=== PATIENT | female | born 2000 | race Caucasian/White ===

== ENCOUNTER 2023-09-22 15:58 | Outpatient (CLI) | payer BC, SELFPAY | END 2023-09-22 15:59 | disposition home or self-care (01) | LOC: NFLDREF 09-23 05:33 | PROVIDERS: Visit Provider Family Medicine | DX: N39.0 Urinary tract infection, site not specified (principal) | CPT/HCPCS: 87086; 87186 ==

== ENCOUNTER 2024-04-18 17:16 | Outpatient (CLI) | payer BC, SELFPAY ==
--- NOTE | 2024-04-18 17:30 | US_ITS ---
Patient: MEGHA MARTIN Facility:?[facility] Patient ID:?[id number] Site Patient ID:?[id number]. Site :?[id number] Study:?US-OB Pelvis 1st tri transvaginal-04/18/2024 5:50:57 PM Ordering Physician:?Leandro Ibarra Final Report: INDICATION: Check viability and dates TECHNIQUE: Transabdominal and transvaginal scanning was performed. Transvaginal scanning was performed to better evaluate the IUP and adnexa. Ovarian blood flow was evaluated with color-flow and pulsed Doppler. COMPARISON: None FINDINGS: There is a living IUP with gestational age of 8 weeks 4 days by LMP and 8 weeks 3 days by today`s crown-rump length. EDC based on today`s crown-rump length is 11/25/2024. The embryonic heart rate is measured at 178 beats per minute. The placenta is not yet formed. No subchorionic hemorrhage is evident. A simple 2.6 cm right ovarian cyst is demonstrated. The right ovary measures 3.8 x 3.0 x 2.8 cm and the left 3.0 x 1.8 x 1.7 cm. Ovarian blood flow is demonstrated with color-flow and pulsed Doppler. No adnexal mass or free fluid is apparent. IMPRESSION: 1. Living IUP with gestational age of 8 weeks 3 days by today`s crown-rump length and EDC of 11/25/2024. 2. No complication evident. 3. Simple 2.6 cm right ovarian cyst, possibly a corpus luteum cyst. Dictated by Anson uS MD @ 04/19/2024 12:18:23 PM Signed by:?Anson Su MD @04/19/2024 12:18:23 PM (Electronic Signature)
== END 2024-04-18 17:17 | disposition home or self-care (01) ==
LOC: US 17:18
PROVIDERS: Visit Provider Registered Nurse
DX: Z34.91 Encounter for supervision of normal pregnancy, unspecified, first trimester (principal); O34.91 Maternal care for abnormality of pelvic organ, unspecified, first trimester; N83.201 Unspecified ovarian cyst, right side; Z3A.08 8 weeks gestation of pregnancy
CPT/HCPCS: 76817

== ENCOUNTER 2024-04-18 18:34 | Outpatient (CLI) | payer BC, SELFPAY ==
[2024-04-18 23:19] LABS: Chlamydia DNA Amplified* NOT DETECTED (No Detected); GC DNA Amplified* NOT DETECTED (No Detected)
== END 2024-04-18 18:35 | disposition home or self-care (01) ==
PROVIDERS: Visit Provider Registered Nurse
DX: Z34.91 Encounter for supervision of normal pregnancy, unspecified, first trimester (principal); Z3A.08 8 weeks gestation of pregnancy
CPT/HCPCS: 83021; 86592; 86703; 86704; 86706; 86762; 86787; 86803; 86850; 86900; 86901; 87086; 87340; 87491; 87591

== ENCOUNTER 2024-04-24 13:58 | Outpatient (CLI) | payer BC, SELFPAY ==
--- NOTE | 2024-04-24 14:00 | CRLHL7_ITS ---
For Patients: As a result of the Century Cures Act, medical imaging exams and procedure reports are released immediately into your electronic medical record. You may view this report before your referring provider. If you have questions, please contact your health care provider. OB ULTRASOUND INDICATION: Bleeding in early . LMP: . JER by LMP: 11/24/2024. GA: 9 w, 3 d. Previous US: Yes. JER by US: 11/25/2024. GA: 8 w, 3 d. CRL: 2.3 cm. 9 w 0 d. JER: 11/27/2024. FHR: 180 BPM. Gestational sac: 2.9 cm. Appears within normal limits. Yolk sac: 4.0 mm. Appears within normal limits. Right ovary: Within normal limits. 3.8 x 2.9 x 2.9 cm. Left ovary: N/V. IMPRESSION: 1. Single viable intrauterine . 2. Measurements are consistent with dates. 3. Tiny subchorionic hemorrhage measuring 1.3 x 0.4 x 0.4 cm, new from the prior study. Cristo Rosenberg M.D. Body/Diagnostic Radiologist [email or web address] SARA/susan davis/Dictated by: Cristo Rosenberg MD @ 04/25/2024 10:55:00 AM (Electronically Signed)
== END 2024-04-24 13:59 | disposition home or self-care (01) ==
LOC: US 13:59
PROVIDERS: Visit Provider Obstetrics & Gynecology
DX: O20.9 Hemorrhage in early pregnancy, unspecified (principal); Z3A.09 9 weeks gestation of pregnancy
CPT/HCPCS: 76817

== ENCOUNTER 2024-06-13 17:20 | Outpatient (CLI) | payer BC, SELFPAY | END 2024-06-13 17:21 | disposition home or self-care (01) | PROVIDERS: Visit Provider Registered Nurse | DX: R03.0 Elevated blood-pressure reading, without diagnosis of hypertension (principal) | CPT/HCPCS: 82565; 82570; 84156; 84450; 84460; 84520 ==

== ENCOUNTER 2024-06-19 11:11 | Outpatient (CLI) | payer BC, SELFPAY | END 2024-06-19 11:12 | disposition home or self-care (01) | LOC: NFLDREF 06-21 01:36 | PROVIDERS: Visit Provider Registered Nurse | DX: R03.0 Elevated blood-pressure reading, without diagnosis of hypertension (principal) | CPT/HCPCS: 82570; 84156 ==

== ENCOUNTER 2024-08-30 07:10 | Outpatient (CLI) | payer BC, SELFPAY ==
--- NOTE | 2024-08-30 07:15 | CRLHL7_ITS ---
For Patients: As a result of the Century Cures Act, medical imaging exams and procedure reports are released immediately into your electronic medical record. You may view this report before your referring provider. If you have questions, please contact your health care provider. US OB PELVIS, F/U GROWTH LMP: 02/18/2024. JER by LMP: 11/24/2024. GA: 27w, 5d. Single. COMPARISON: 08/01/2024 MFM, 07/10/2024 MFM, 04/24/2024. INDICATION: Growth - CHTN. CERVIX: Not visualized. POSITIONING: Breech. AMNIOTIC FLUID: 7.1 cm. PLACENTA: Technique: Transabdominal. PLACENTA POSITION: Anterior. DOPPLER: heart rate: 146 bpm. BIOMETRY: BPD: 6.8 cm. 27w, 2d, 22.7 percent. HC: 25.9 cm. 28w, 1d, 33.3 percent. AC: 23.9 cm. 28w, 1d, 55.8 percent. FL: 5.0 cm. 26w, 6d, 13.4 percent. FL/AC ratio: 20.9 percent. HC/AC ratio: 1.1. EFW: 1104 g. Weight: 2 lbs, 7 oz. age by this US: 27w, 4d. JER by this US: 11/25/2024. Percentile by JER: 34.1 percent. IMPRESSION: 1. Sonographic gestational age 27 weeks 4 days and sonographic due date 11/25/2024. Good correlation with dates. Normal interval growth. 2. Estimated weight 34th percentile. Abdominal circumference 56th percentile. Jonathan Gould M.D. Diagnostic Radiologist [email or web address] SP/Dictated by: Jonathan Gould MD @ 08/30/2024 12:59:00 PM (Electronically Signed)
== END 2024-08-30 07:11 | disposition home or self-care (01) ==
LOC: US 07:11
PROVIDERS: Visit Provider Obstetrics & Gynecology
DX: Z34.92 Encounter for supervision of normal pregnancy, unspecified, second trimester (principal); Z3A.27 27 weeks gestation of pregnancy
CPT/HCPCS: 76816; 86850

== ENCOUNTER 2024-08-30 08:30 | Outpatient (CLI) | payer BC, SELFPAY | END 2024-08-30 08:31 | disposition home or self-care (01) | LOC: NFLDREF 08:31 | PROVIDERS: Visit Provider Obstetrics & Gynecology | DX: Z34.03 Encounter for supervision of normal first pregnancy, third trimester (principal); Z67.11 Type A blood, Rh negative | CPT/HCPCS: 86592; 86850; J2791 ==

== ENCOUNTER 2024-09-26 10:24 | Outpatient (CLI) | payer BC, SELFPAY ==
[2024-09-26 10:43] VITALS: PULSE 74; O2SAT 96
[2024-09-26 10:45] VITALS: RESP 18; TEMP 37
[2024-09-26 10:47] VITALS: BP 113/56; PULSE 70
[2024-09-26 10:48] VITALS: PULSE 73; O2SAT 97
[2024-09-26 10:53] VITALS: PULSE 73; O2SAT 96
[2024-09-26 11:03] VITALS: BP 109/53; PULSE 67
--- NOTE | 2024-09-26 11:57 | PC.OBNST ---
NST Note NST Note Start: 09/26/24 10:28 Freq: ONCE Status: Active Protocol: Document 09/26/24 11:53 FLAKITA (Rec: 09/26/24 11:57 FLAKITA Desktop) NST Note 1 Para (# of births) 0 EDC 11/24/24 Gestational Age In Weeks & Days 31 Weeks & 4 Days High Risk Factors High Blood Pressure - Preexisting Patient Presented with Complaint(s) of Headache Other Complaints Pt. had Headache, R eye blurred vision, and nausea this am. Her BP at work was 140/90. Appropriate for Gestational Age Yes BLADIMIR Thomas Date 09/26/24 Appropriate for Gestational Age Yes BLADIMIR Aragon Date 09/26/24 OB NST charge Yes Complete NST Note via Write Note Yes The provider's electronic signature indicates the NST is reactive/appropriate for gestational age. *Note to provider: If an addendum is required, open the patient's chart and click on the note under the Nurse/Allied Health tab.
== END 2024-09-26 11:25 | disposition home or self-care (01) ==
LOC: OB OUT 10:25 → OB 10:26
PROVIDERS: Visit Provider Obstetrics & Gynecology
DX: O10.913 Unspecified pre-existing hypertension complicating pregnancy, third trimester (principal); R51.9 Headache, unspecified; Z3A.31 31 weeks gestation of pregnancy
CPT/HCPCS: 59025; G0463

== ENCOUNTER 2024-09-27 07:15 | Outpatient (CLI) | payer BC, SELFPAY ==
--- NOTE | 2024-09-27 07:15 | CRLHL7_ITS ---
For Patients: As a result of the Century Cures Act, medical imaging exams and procedure reports are released immediately into your electronic medical record. You may view this report before your referring provider. If you have questions, please contact your health care provider. OB ULTRASOUND BIOPHYSICAL PROFILE/FOLLOW-UP LIMITED, 09/27/2024 CLINICAL HISTORY: CHTN. COMPARISON: 08/30/2024, 08/01/2024, 07/10/2024. TECHNIQUE: Real time veloz scale imaging of the fetus was performed transabdominally. FINDINGS: Gestation: Single. JER by LMP: 10/30/2024. GA: 31 weeks 5 days. Cervix: Not visualized. Positioning: Vertex. Amniotic Fluid: 6.5 cm SDP. BIOPHYSICAL PROFILE: Gross Body Movements: 2 Tone: 2 Respiratory Activity: 2 Amniotic Fluid: 2 Total Score: 8/8 Placenta: Technique: TA. Placenta Location: Anterior. Dopplers: Heart Rate: 159 bpm. BIOMETRY: BPD: 8.0 cm, 32 weeks 1 day. 56% HC: 29.8 cm, 33 weeks 0 days. 46% AC: 28.3 cm, 32 weeks 2 days. 67% FL: 5.7 cm, 30 weeks 0 days. 5% FL/AC Ratio: 20.23% HC/AC Ratio: 1.05. EFW: 1820 grams, 4 lb 0 oz. Age by this US: 31 weeks 6 days. JER by this US: 11/23/2024. Percentile by JER: 38% IMPRESSION: 1. Biophysical profile score 8/8. 2. Sonographic gestational age 31 weeks 6 days and sonographic due date 11/23/2024. Good correlation with dates. Normal interval growth. 3. Estimated weight 38th percentile. Abdominal circumference 67th percentile. Jonathan Gould M.D. Diagnostic Radiologist [email or web address] Transcribed: 11:03 am DW/Dictated by: Jonathan Gould MD @ 09/27/2024 8:45:00 AM (Electronically Signed)
== END 2024-09-27 07:16 | disposition home or self-care (01) ==
LOC: US 07:16
PROVIDERS: Visit Provider Obstetrics & Gynecology
DX: O10.913 Unspecified pre-existing hypertension complicating pregnancy, third trimester (principal); Z3A.31 31 weeks gestation of pregnancy
CPT/HCPCS: 76816; 76819

== ENCOUNTER 2024-10-04 09:17 | Outpatient (CLI) | payer BC, SELFPAY ==
--- NOTE | 2024-10-04 10:45 | CRLHL7_ITS ---
For Patients: As a result of the Cures Act, medical imaging exams and procedure reports are released immediately into your electronic medical record. You may view this report before your referring provider. If you have questions, please contact your health care provider. OB ULTRASOUND FOLLOW-UP BIOPHYSICAL PROFILE, 10/04/2024 CLINICAL HISTORY: HTN. COMPARISON: 09/27/2024, 08/30/2024, 08/01/2024. TECHNIQUE: Real time veloz scale imaging of the fetus was performed. Transabdominal imaging performed. FINDINGS: JER by LMP: 11/24/2024. GA: 32 weeks 5 days. GESTATION: Single. CERVIX: Not visualized. POSITIONING: Vertex. AMNIOTIC FLUID: 5.5 cm SDP. BIOPHYSICAL PROFILE: Gross Body Movements: 2 Tone: 2 Respiratory Activity: 2 Amniotic Fluid SDP: 2 Total Score: 8/8 PLACENTA: Technique: TA. Placenta Position: Anterior. DOPPLERS: Heart Rate: 154 bpm. IMPRESSION: Normal biophysical profile score of 8/8. Jonathan Gould M.D. Diagnostic Radiologist [email or web address] Transcribed: 11:04 am DW/Dictated by: Jonathan Gould MD @ 10/04/2024 10:17:00 AM (Electronically Signed)
== END 2024-10-04 09:18 | disposition home or self-care (01) ==
LOC: US 09:17
PROVIDERS: Visit Provider Obstetrics & Gynecology
DX: O10.913 Unspecified pre-existing hypertension complicating pregnancy, third trimester (principal); Z3A.32 32 weeks gestation of pregnancy
CPT/HCPCS: 76819; 82565; 82570; 84156; 84450; 84460

== ENCOUNTER 2024-10-11 07:07 | Outpatient (CLI) | payer BC, SELFPAY ==
--- NOTE | 2024-10-11 07:15 | CRLHL7_ITS ---
For Patients: As a result of the Century Cures Act, medical imaging exams and procedure reports are released immediately into your electronic medical record. You may view this report before your referring provider. If you have questions, please contact your health care provider. INDICATION: Hypertension COMPARISON: 10/04/2024 TECHNIQUE: Oliva-scale and color Doppler of the gravid uterus and fetus from a transabdominal approach. FINDINGS: Provided gestational age: 33 weeks 5 days There is a single intrauterine gestation in cephalic presentation. heart rate is 144 beats per minute. Placenta is anterior. tone: 2/2 movement: 2/2 breathin/2 Amniotic fluid volume: 2/2 The single deepest vertical pocket measures: 5.9 cm. IMPRESSION: Biophysical profile score is 6/8. No points for breathing. Dictated by Angi Lane MD @ 10/11/2024 8:02:38 AM (Electronically Signed)
== END 2024-10-11 07:08 | disposition home or self-care (01) ==
LOC: US 07:08
PROVIDERS: Visit Provider Obstetrics & Gynecology
DX: O13.3 Gestational [pregnancy-induced] hypertension without significant proteinuria, third trimester (principal); Z3A.33 33 weeks gestation of pregnancy
CPT/HCPCS: 76819; 82565; 82570; 84156; 84450; 84460

== ENCOUNTER 2024-10-12 07:17 | Outpatient (CLI) | payer BC, SELFPAY ==
--- NOTE | 2024-10-12 07:15 | CRLHL7_ITS ---
For Patients: As a result of the Cures Act, medical imaging exams and procedure reports are released immediately into your electronic medical record. You may view this report before your referring provider. If you have questions, please contact your health care provider. OB ULTRASOUND LMP: 02/18/2024. JER by LMP: 11/24/2024. GA: 33 w, 6 d. Single. Comparison: 10/11/2024, 10/04/2024, 09/27/2024. INDICATION: Failed BPP yesterday. TECHNIQUE: Real time grayscale imaging of the fetus was performed. Transabdominal. CERVIX: Not visualized. POSITIONING: Vertex. AMNIOTIC FLUID: 3.6 cm. SDP (N: greater than 2 x 1 cm) BIOPHYSICAL PROFILE: 2: Gross body movements 2: tone 2: Respiratory activity 2: Amniotic fluid SDP (N: greater than 2 x 1 cm) 8/8: Total score PLACENTA: Technique: Transabdominal. PLACENTA POSITION: Anterior. DOPPLER: heart rate: 141 bpm. IMPRESSION: 1. Biophysical profile score 8/8. 2. Left renal pelvis measures 4.9 mm. Normal is considered less than 7 mm. Jonathan Gould M.D. Diagnostic Radiologist [email or web address] GERTRUDIS/susan davis/Dictated by: Jonathan Gould MD @ 10/12/2024 10:14:00 AM (Electronically Signed)
== END 2024-10-12 07:18 | disposition home or self-care (01) ==
LOC: US 07:18
PROVIDERS: Visit Provider Obstetrics & Gynecology
DX: O10.913 Unspecified pre-existing hypertension complicating pregnancy, third trimester (principal); Z3A.33 33 weeks gestation of pregnancy
CPT/HCPCS: 76819

== ENCOUNTER 2024-10-18 08:13 | Outpatient (CLI) | payer BC, SELFPAY | END 2024-10-18 08:14 | disposition home or self-care (01) | LOC: NFLDREF 10-25 15:11 | PROVIDERS: Visit Provider Obstetrics & Gynecology | DX: I10 Essential (primary) hypertension (principal) | CPT/HCPCS: 82565; 82570; 84156; 84450; 84460 ==

== ENCOUNTER 2024-10-25 07:09 | Outpatient (CLI) | payer BC, SELFPAY ==
--- NOTE | 2024-10-25 07:15 | CRLHL7_ITS ---
For Patients: As a result of the Century Cures Act, medical imaging exams and procedure reports are released immediately into your electronic medical record. You may view this report before your referring provider. If you have questions, please contact your health care provider. OB ULTRASOUND LMP: 02/17/2025. JER by LMP: 11/24/2024. GA: 35 w, 5 d. Single. Comparison: 10/12/2024, 10/11/2024, 10/04/2024. INDICATION: Chronic HTN. TECHNIQUE: Real time grayscale imaging of the fetus was performed. Transabdominal. CERVIX: Not visualized. POSITIONING: Vertex. AMNIOTIC FLUID: 6.1 cm. SDP (N: greater than 2 x 1 cm) BIOPHYSICAL PROFILE: 2: Gross body movements 2: tone 2: Respiratory activity 2: Amniotic fluid SDP (N: greater than 2 x 1 cm) 8/8: Total score PLACENTA: Technique: Transabdominal. PLACENTA POSITION: Anterior. DOPPLER: heart rate: 157 bpm. BIOMETRY: BPD: 8.8 cm. 35 w, 5 d, 55 percent. HC: 32 cm. 36 w, 1 d, 28 percent. AC: 30.6 cm. 34 w, 4 d, 25 percent. FL: 6.7 cm. 34 w, 4 d, 18 percent. FL/AC ratio: 22.03 percent. HC/AC ratio: 1.05. EFW: 2522 g. Weight: 5 lbs, 9 oz. age by this US: 35 w, 2 d. JER by this US: 11/27/2024. Percentile by JER: 26 percent. IMPRESSION: 1. Normal biophysical profile score 8/8. 2. Sonographic gestational age 35 weeks 2 days and sonographic due date 11/27/2024. Good correlation with dates. Normal interval growth. 3. Estimated weight 26th percentile. Abdominal circumference 25th percentile. Jonathan Gould M.D. Diagnostic Radiologist [email or web address] GERTRUDIS/susan davis/Dictated by: Jonathan Gould MD @ 10/25/2024 9:24:00 AM (Electronically Signed)
== END 2024-10-25 07:10 | disposition home or self-care (01) ==
LOC: US 07:09
PROVIDERS: Visit Provider Obstetrics & Gynecology
DX: O10.913 Unspecified pre-existing hypertension complicating pregnancy, third trimester (principal); Z3A.35 35 weeks gestation of pregnancy; Z37.0 Single live birth
CPT/HCPCS: 76816; 76819; 82565; 82570; 84156; 84450; 84460; 87081; 87653

== ENCOUNTER 2024-11-01 08:09 | Outpatient (CLI) | payer BC, SELFPAY | END 2024-11-01 08:10 | disposition home or self-care (01) | LOC: NFLDREF 11-03 16:40 | PROVIDERS: Visit Provider Obstetrics & Gynecology | DX: I10 Essential (primary) hypertension (principal) | CPT/HCPCS: 82565; 82570; 84156; 84450; 84460 ==

== ENCOUNTER 2024-11-08 07:06 | Outpatient (CLI) | payer BC, SELFPAY ==
--- NOTE | 2024-11-08 07:15 | CRLHL7_ITS ---
For Patients: As a result of the Century Cures Act, medical imaging exams and procedure reports are released immediately into your electronic medical record. You may view this report before your referring provider. If you have questions, please contact your health care provider. INDICATION: Chronic hypertension TECHNIQUE: Ultrasound OB pelvis transabdominal. Real-time veloz-scale imaging of the fetus was performed with color Doppler and spectral Doppler analysis of the umbilical artery without stress testing. COMPARISON: 10/25/2024 FINDINGS: Sonographic imaging demonstrates a single living intrauterine gestation. Fetus demonstrates a regular cardiac rate of 141 beats per minute. Fetus has a cephalic orientation. The placenta lies anterior. Amniotic fluid volume appears normal with a MVP of 4.1 cm. breathing movements, motion, and tone were all observed. IMPRESSION: Single viable intrauterine with a biophysical profile 01/05. Dictated by Raghu Thorne MD @ 11/08/2024 9:06:41 AM (Electronically Signed)
== END 2024-11-08 07:07 | disposition home or self-care (01) ==
LOC: US 07:07
PROVIDERS: Visit Provider Obstetrics & Gynecology
DX: O10.919 Unspecified pre-existing hypertension complicating pregnancy, unspecified trimester (principal)
CPT/HCPCS: 76819; 82565; 82570; 84156; 84450; 84460

== ENCOUNTER 2024-11-15 08:15 | Outpatient (CLI) | payer BC, SELFPAY | END 2024-11-15 08:16 | disposition home or self-care (01) | LOC: NFLDREF 11-17 17:04 | PROVIDERS: Visit Provider Obstetrics & Gynecology | DX: O13.3 Gestational [pregnancy-induced] hypertension without significant proteinuria, third trimester (principal); Z3A.37 37 weeks gestation of pregnancy | CPT/HCPCS: 82565; 82570; 84156; 84450; 84460 ==

== ENCOUNTER 2024-11-16 00:44 | Inpatient (IN) | payer BC, SELFPAY ==
[2024-11-16] VITALS (54 sets, daily range): BP systolic 104–138; BP diastolic 57–85; PULSE 71–101; RESP 16–20; TEMP 36.7–37.4; O2SAT 89–100; BMI 36.0
[2024-11-16 00:58] LABS: Amnisure Rom* POSITIVE
[2024-11-16 02:16] LABS: Hematocrit 35.2 % (33.0-51.0); Mean Corpuscular HGB Conc 34 gm/dL (32-36); Mean Corpuscular Hemoglobin 31 pg (26-34); Mean Corpuscular Volume 90 fL (80-100); Platelet Count* 214 K/uL (140-440); Red Blood Count 3.92 m/uL (4.00-5.20)
[2024-11-16 02:19] LABS: Slide Review Reflex No
--- NOTE | 2024-11-16 02:27 | P.LDBA_ITS ---
Subjective History of Present Illness Time Seen by Provider: : Date Seen: 11/16/24 Narrative: Dom is a 24yo at 38w6d GA admitted for spontaneous rupture membranes. Her is complicated by chronic hypertension (well controlled, on no medications the last several weeks), elevated BMI, anemia. Her complete history and physical was documented by myself on 11/01. She notes onset of intermittent contractions this evening, followed by SROM of clear fluid at approximately 2245. On admission, AmniSure was found to be positive. Cervical exam in the clinic earlier today was 50/-1. Patient notes intermittent contractions. She denies any vaginal bleeding. Endorses active movement. Specific Issues/Plans G 1 P 0 Partner: Jean. Baby girl: Brittany # BMI 31.4. Hemoglobin A1c 5.5% Daily low-dose aspirin recommended starting at 12 weeks. #Chronic hypertension diagnosed at 16 weeks. Patient to check BPs at home daily and call with any readings 140/90 or higher. baseline labs: P/C: 0.04, Total protein 24 hour: 79.5, Total protein 6. normal BUN and creat. normal ALT, AST. Started labetalol 100 mg BID on 06/28/24. Given low BP noted on 10/18, recommended cessation Level 2 US ordered; see below Monthly US for growth beginning 28 weeks Weekly testing beginning 32 weeks with HELLP labs. Orders placed 10/04/24. NST/BPP form: Filled out on 07/14/24 Delivery recommended 38 0/7-39 6/7 weeks - as off meds for now, consider 37 if need to restart - Pt desires IOL at 39 weeks after counseling, IOL consent/scheduling form completed 11/08 # atopic dermatitis that affects hands, arms, and nipples. Currently managed with aloe vera and Eucerin cream. # varicella non-immune. Rec. PP vaccine. #Anemia at 28 weeks Hgb:10.8 mg/dL, start oral iron Vaccines: Flu: declined Covid: declined Tdap: 09/13/24 RSV: N/A GBS: 10/25/24 Rh negative. rhogam: 08/30/24 given [Plan for testing] H&P: [] Imaging: * Level 2 on 07/10/24: Landaverde at 20 weeks 3 days. Anterior placenta not previa, three-vessel umbilical cord, SDP: 4.4 cm. EFW: 61 percentile, AC: 73rd percentile. Cervical length 45.6 mm. No anomalies identified but some views were suboptimal. Follow-up is scheduled here in 3 weeks to reassess anatomy that was suboptimally seen today. Following this, recommend monthly growth ultrasounds starting at 28 weeks and weekly testing starting at 32 weeks due to chronic hypertension on medication. * Follow up level 2 08/01: Breech, MVP 5.6 cm, EFW 38%, AC 41%, normal completed anatomy scan. * 08/30/2024: Breech presentation, single deepest pocket of amniotic fluid 7.1 cm, BPD: 22.7 percentile, HC: 33 percentile, AC: 56 percentile, FL: At 13th percentile. EFW: A 34th percentile. Normal growth. * 09/27/24: Vertex, SDP 6.5, EFW 38%, AC 67% BPP 8/8 * 10/11/2024 BPP 8/8, left renal pelvis 4.9 mm (normal) 32 week mental health: 09/27/24 Last pap: 05/2020 NIL; complete ?GBS negative ? OB - Problem Based A/P Additional Plan (1) Spontaneous rupture of amniotic membranes: Status: Acute (2) Anemia affecting : Status: Acute (3) Chronic hypertension: Problem details: diagnosed at 16 weeks gestation (06-13-24) Status: Acute (4) BMI 31.0-31.9,adult: Status: Acute Plan Dom is a 24-year-old at 38w6d GA admitted for spontaneous rupture of membranes at approximately 2245 this evening. is otherwise complicated by chronic hypertension well controlled without medication, anemia, elevated BMI. - SROM was confirmed with positive AmniSure on admission. - Reactive NST on admission, did briefly have minimal variability with a suspected sleep cycle initially. heart rate continues to be category 1. - Dom is endorsing intermittent contractions, appeared occur about every 6 minutes on toco. We discussed potential options for management, including a period of expectant management versus initiation of Pitocin. Given that she is noting more frequent contractions, we mutually agreed to a period of 6 hours of expectant management. Plan to check her cervix at that time, sooner as clinically indicated. - Plan to obtain CBC, creatinine, AST, ALT and type and screen on admission in the setting of chronic hypertension and anemia. - Diligent blood pressure monitoring ongoing. Patient has been normotensive thus far. - Blood type A negative, plan cord blood at delivery - GBS negative OB Exam Physical Exam Vital signs: Temp Pulse Resp BP Pulse Ox 98.5 F 73 16 120/70 94 11/16/24 02:11 11/16/24 02:11/16/24 02:11 11/16/24 02:11/16/24 02:10 Narrative: General: Alert and oriented in no acute distress Psych: Appropriate mood and affect Abdomen: Gravid NST: Initially, heart rate tracing was notable for baseline of 130 beats per minute with minimal variability. This spontaneously improved and was reactive within 40 minutes - baseline 130 beats per minute, moderate variability, several qualifying 15 x 15 accelerations present, decelerations absent. Freer: Ankit approximately every 6 minutes
[2024-11-16 02:42] LABS: Alanine Aminotransferase* 18 U/L (4-35); Aspartate Amino Transferase* 26 U/L (12-35); Blood Urea Nitrogen* 8 mg/dL (5-24); Creatinine* 0.6 mg/dL (0.5-1.5); Est. Creatinine Clearance* 145.85; Estimated Glomerular Filt Rate 128 ml/min
[2024-11-16] MEDS: LACTATED RINGERS 1000 ML 1,000 ML 125 ML IV (06:23)
[2024-11-16] MEDS: OXYTOCIN 30 unit/500 ML in NS 30 UNIT/500 ML BAG IVPB (06:24)
[2024-11-16] MEDS: LACTATED RINGERS 1000 ML 1,000 ML 975 ML IV (14:55)
[2024-11-16] MEDS: fentaNYL 100 MCG/2 ML inj IVP (15:59)
[2024-11-16] MEDS: LIDOCAINE 1 % PF 30 ML INJECTION (16:04)
--- NOTE | 2024-11-16 17:32 | W.PM.VAGD1_ITS ---
Procedure Delivery date: 11/16/24 Procedure Done: Global Events: Chronic Hypertension Intrapartal Events: Labor Augmentation Delivery monitor: external FHT Route of delivery: Narrative: The patient is a 24 year-old G 1 P 0 admitted on 11/16/2024 at 38 and 6/7 weeks gestation for SROM at 2245. GBS negative Labor Analgesia: Nitrous Gas Pitocin: Titrating pitocin for augmentation of labor and 30u of pitocin bolus for active management of 3rd stage SROM: 11/15/2024 at 2245, with clear fluid Complete: November 16 at 1537 Pushing: November 16 at 1537 heart tones during second stage were cat 2 with variables that resolved spontaneously with cessation of push and a 3-4 minutes prolonged deceleration to 90s during which resolved with delivery. Moderate variability and acceleration. Maternal pushing effort was excellent and At 1548 a viable female infant delivered in vertex LA presentation over intact via spontaneous vaginal delivery. The infant's body was delivered in the usual manner without difficulty. The was placed on maternal abdomen. The cord was clamped and cut after a 30-60 second delay. The nose and mouth were bulb suctioned. Infant weight: Pending. 8 at 1 minute and 9 at 5 minutes. Shoulder dystocia: No. Nuchal cord: Yes. Delivered through and easily reduced. Placenta delivered spontaneously and complete at 1552 with a 3-vessel cord. Placenta examined and noted to be complete. Placenta was sent to pathology for chronic hypertension on no medication. The cervix and vagina were inspected for lacerations, and 2nd degree perineal, left sulcal, small right labial, and left labial that extended near the urethra and clitoris were noted. She had brisk bleeding from the right sulcal laceration. The area was packed wi th laps for tamponade while awaiting medication for pain control. Patient did not tolerate exam well initially as she did not have any analgesia. 50 mcg of fentanyl was given. 20 cc of lidocaine with epinephrine was given. Laceration(s): Repaired with 2-0 vicryl in a continuos locking fashion. Prior to repairing the left labial tear, Betadine used to clean the urethra and a red rubber was inserted to help delineate the borders of the urethra during repair. 1 figure of 8 placed with 2-0 chromic on right labial tear. Complications: None QBL: 670 cc. Mostly from arterial in the left sulcal laceration. Sponge and needles counts are correct. Mother and (Brittany) were stable at the time of this note.
[2024-11-16] MEDS: IBUPROFEN 600 MG TABLET PO (17:45)
[2024-11-16] MEDS: DOCUSATE SODIUM 100 MG CAPSULE PO (20:46)
[2024-11-16] MEDS: ACETAMINOPHEN 500 MG TABLET 1000 MG PO (21:29)
[2024-11-17] VITALS (7 sets, daily range): BP systolic 102–131; BP diastolic 67–84; PULSE 78–93; RESP 16–18; TEMP 36.4–37.2; O2SAT 96–98
[2024-11-17] MEDS: IBUPROFEN 600 MG TABLET PO ×4 (01:45→23:45)
[2024-11-17 06:55] LABS: Hemoglobin* 9.8 gm/dL (12.0-16.0)
--- NOTE | 2024-11-17 07:44 | PM.OBPNVD1 ---
OB - PN:Subj Subjective Date Seen: 11/17/24 Narrative: Dom is a 24 y.o. who was admitted to [facility] for labor.? She had an uncomplicated NVD.? ?? The patient feels well.? The pain is well controlled with current medications.? She has no new complaints.? She is breast feeding and reports things are going well.? the patient has done well.? Vitals have been stable.? She has remained afebrile.? Has a good appetite, is tolerating a general diet.? She is voiding without difficulty.? She is passing gas and has not had a bowel movement.? She is ambulating and denies any dizziness.? Has Small amount of rubra lochia.?She is complaining of feeling short of breath when standing upright, otherwise feels well. Hgb is 9.8, starting oral iron supplementation today. OB - PN: Obj Exam Physical Exam: Vital signs: Temp Pulse Resp BP Pulse Ox O2 Del Method 97.5 F L 78 16 102/67 97 Room Air 11/17/24 06:05 11/17/24 06:05 11/17/24 06:05 11/17/24 06:05 11/17/24 06:05 11/17/24 06:05 Narrative: GENERAL APPEARANCE:? normal affect, alert, no distress? MOOD:? appropriate? HEENT: normocephalic, neck supple, full ROM? CHEST:? Symmetrical chest wall movement.? Normal respiratory effort.? Clear to auscultation ? HEART:? regular rate and rhythm? ABDOMEN:? soft, non-tender. Uterine fundus is firm, at Umbilicus, Midline and is appropriate for the stage of recovery.? Bowel sounds present.? PERINEUM:? mild edema of the perineum, there is a 2nd degree laceration that is healing well.? EXTREMITIES:? normal and no edema? OB - PN: Obj Data Labs Labs: Laboratory Results - last 24 hr 11/17/24 06:45 Hgb 9.8 L OB - PN: A/P Delivery Assessment and Plan (1) Spontaneous rupture of amniotic membranes: Status: Acute (2) Anemia affecting : Status: Acute (3) Chronic hypertension: Problem details: diagnosed at 16 weeks gestation (06-13-) Status: Acute (4) BMI 31.0-31.9,adult: Status: Acute (5) care and examination immediately after delivery: Status: Acute (6) Lactating mother: Status: Acute Plan day: 1 Plan: routine care Comments: G 1 P 1 status post uncomplicated NVD??? 1.? Continue route PP cares? 2.? .? May see if desired? 3.? Anticipate discharge home tomorrow? 4. ?Acute anemia.? Iron supplement ordered.
[2024-11-17] MEDS: DOCUSATE SODIUM 100 MG CAPSULE PO (07:53)
[2024-11-17] MEDS: FERROUS SULFATE 325 MG TABLET PO (07:53)
[2024-11-17 16:53] LABS: Rapid Plasma Reagin (RPR) Non Reactive (Non Reactive)
[2024-11-18 04:45] VITALS: BP 113/75; PULSE 72; RESP 16; TEMP 36.9; O2SAT 96
[2024-11-18 08:18] VITALS: BP 126/83; PULSE 69; RESP 16; TEMP 36.3; O2SAT 96
[2024-11-18] MEDS: IBUPROFEN 600 MG TABLET PO ×2 (08:25→14:42)
[2024-11-18] MEDS: DOCUSATE SODIUM 100 MG CAPSULE PO (08:27)
--- NOTE | 2024-11-18 09:36 | P.DS_ITS ---
DS: Providers Provider Date Seen: 11/18/24 Date of admission: 11/16/24 00:44 Primary care physician: Not a Local Provider Admitting Clinician: Colleen Gusman MD Attending Physician on discharge: Colleen Gusman MD Date of Discharge: 11/18/24 DS: Diagnosis Discharge Diagnosis (1) (normal spontaneous vaginal delivery): Status: Acute Problem details: 11/16 at 1548, female. (2) Anemia due to acute blood loss: Status: Acute (3) Lactating mother: Status: Acute (4) Chronic hypertension: Status: Acute Problem details: diagnosed at 16 weeks gestation (06-13-24) Exam Narrative: Exam Narrative: General: Pleasant, no acute distress Heart: Regular rate and rhythm, no murmur or gallop Lungs: Clear to auscultation bilaterally Abdomen: Soft, nontender, fundus well below umbilicus Lower extremities: 1+ bilateral edema Const: Vital Signs, click to edit/add: Vital Signs - 24 hr 11/17/24 12:11 11/17/24 16:30 11/17/24 20:35 Temperature 98.0 F 98.7 F 98.6 F Pulse Rate [Pulse Oximeter] 84 88 78 Respiratory Rate 16 17 16 Blood Pressure [Ri ght Arm] 116/79 113/75 115/76 Pulse Oximetry 97 97 97 Oxygen Delivery Me thod Room Air Room Air Room Air 11/17/24 23:49 11/18/24 04:45 11/18/24 08:18 Temperature 98.4 F 97.4 F L Pulse Rate [Pulse Oximeter] 93 72 69 Respiratory Rate 16 16 16 Blood Pressure [Ri ght Arm] 109/70 113/75 126/83 Pulse Oximetry 96 96 96 Oxygen Delivery Me thod Room Air Room Air Room Air OB - DS: Summary Hospital Course Hospital Course: Dom is a 24 yo G1 now P1-0-0-1 woman who is s/p on 11/16/24 at 39 0/7 weeks' gestation after presenting with SROM the night before. OB Problem List # BMI 31.4. Hemoglobin A1c 5.5% Daily low-dose aspirin recommended starting at 12 weeks. #Chronic hypertension diagnosed at 16 weeks. Patient to check BPs at home daily and call with any readings 140/90 or higher. baseline labs: P/C: 0.04, Total protein 24 hour: 79.5, Total protein 6. normal BUN and creat. normal ALT, AST. Started labetalol 100 mg BID on 06/28/24. # atopic dermatitis that affects hands, arms, and nipples. Currently managed with aloe vera and Eucerin cream. # varicella non-immune. Rec. PP vaccine. #Anemia at 28 weeks Hgb:10.8 mg/dL, start oral iron She had an uncomplicated on 11/16. She gave to a female infant. She had 2nd degree perineal, left sulcal and small right labial lacerations. QBL was 670. Her hemoglobin was 9.8 on PPD #1 and she was continued on ferrous sulfate every other day. Today, on PPD #2, she reports feeling well. Her daughter is . She reports the pain is well managed. She denies any heavy bleeding. [place] Gender: Female Time Spent with Patient Time attestation: Total time spent providing and/or coordinating discharge services: Discharge Plan Discharge Disposition: Home, Self-Care Date of Admission: 11/16/24 00:44 Attending Provider on Discharge: Teena Segovia Primary Care Provider: Provider,Not a Local Condition: Stable Anticipated Discharge Date/Time: 11/18/24 10:07 Discharge Medications: New acetaminophen 500 mg Tablet 1,000 mg PO Q6H PRNQty: 0 0RF docusate sodium 100 mg Capsule 100 mg PO DAILY Qty: 0 0RF ibuprofen 600 mg Tablet 600 mg PO Q6H PRN (Reason: Pain) Qty: 60 0RF Lanolin (HPA) 100 % Cream 1 applic topical Q1H PRNQty: 0 0RF Continued ferrous sulfate 325 mg (65 mg iron) tablet 325 mg PO Q OTHER DAY Qty: 60 0RF triamcinolone acetonide 1 applic topical DAILY [id number] 3 fatty no.1 27-1-300 mg capsule 1 cap PO DAILY ascorbate calcium (vitamin C) 500 mg tablet 500 mg PO BID cholecalciferol (vitamin D3) 10 mcg (400 unit) capsule 10 mcg PO QDAY aspirin [Aspirin Childrens] 81 mg tablet,chewable 81 mg PO QDAY (DME) blood pressure monitor Kit See Rx Instructions .Route Qty: 1 0RF Rx Instructions: As directed Discharge Orders: Discharge Order (Routine); Ordered 11/18/24 Ordered By: Teena Segovia Patient Education: OB Over the Counter Medication Information, OB Vaginal/Breast Feeding Additional Instructions: Discharge instructions were reviewed with the patient including signs and symptoms of infection and home going medications Nothing vaginally for 6 weeks: no tampons or intercourse Do not drive while taking narcotic pain medication(s) Off Work or School for 8 weeks Symptoms to report to doctor: * Bleeding that saturates more than one pad per hour * Passing clots larger than the size of a golf ball * Pain not relieved by prescribed medication * Fever above 100.4 degrees Fahrenheit * A foul vaginal odor * Difficulty in emotions, mood, and functions * Thoughts of hurting yourself and/or * Painful, reddened area in your breast * Any drainage, redness, or tenderness in your IV/epidural site * Decrease in urination or painful, frequent urinating * Chest pain * Shortness of breath * Tenderness or pain with redness and/swelling in the calf(s) of your leg [facility] for a BP check in 3-5 days Call with BP greater than or equal to 160/110, or persistent BPs 150s / 100s Severe headache that doesn't improve after taking medications Changes in vision, including temporary loss of vision, blurred vision, and/or light sensitivity Upper abdominal pain (usually under ribs on the right side) Optional 2-week visit: discuss feeding concerns, review control options and screen for anxiety/depression. 6-week visit for an annual exam. consultation services are available to all mothers and babies for the first year after delivery.? To make an appointment, please call [phone]. Discharge Diet: Regular Follow Up Appointments: [facility] [Provider Group] Forms: [employer] Info Instructions
[2024-11-18 15:42] VITALS: BP 126/83; PULSE 80; RESP 16; TEMP 37.2; O2SAT 97
== END 2024-11-18 16:20 | disposition home or self-care (01) | DRG 560 ==
LOC: OB OUT 00:44 → OB 00:44
PROVIDERS: Obstetrics & Gynecology; Admitting Provider Obstetrics & Gynecology; Visit Provider Obstetrics & Gynecology
DX: O10.92 Unspecified pre-existing hypertension complicating childbirth (principal); O99.02 Anemia complicating childbirth; O70.1 Second degree perineal laceration during delivery; D62 Acute posthemorrhagic anemia; Z28.39 Other underimmunization status; Z3A.38 38 weeks gestation of pregnancy; Z37.0 Single live birth; O13.3 Gestational [pregnancy-induced] hypertension without significant proteinuria, third trimester; Z3A.37 37 weeks gestation of pregnancy
CPT/HCPCS: 36415; 82565; 82570; 84112; 84156; 84450; 84460; 84520; 85018; 85027; 85461; 86592; A9270; J2003; J2791; J3010; J7120

== ENCOUNTER 2024-11-21 11:24 | Outpatient (CLI) | payer BC, SELFPAY | END 2024-11-21 11:25 | disposition home or self-care (01) | PROVIDERS: Visit Provider Obstetrics & Gynecology | DX: Z39.2 Encounter for routine postpartum follow-up (principal) | CPT/HCPCS: 82565; 82570; 84156; 84450; 84460; 84520; 84550 ==

== ENCOUNTER 2024-11-22 09:48 | Outpatient (CLI) | payer BC, SELFPAY | END 2024-11-22 09:49 | disposition home or self-care (01) | PROVIDERS: Visit Provider Obstetrics & Gynecology | DX: Z39.2 Encounter for routine postpartum follow-up (principal) | CPT/HCPCS: 84450; 84460 ==

== ENCOUNTER 2024-12-28 11:16 | Outpatient (CLI) | payer BC, SELFPAY ==
[2025-01-02 12:31] LABS: Pap Test Digital Imaging Done
== END 2024-12-28 11:17 | disposition home or self-care (01) ==
LOC: NFLDREF 11:16
PROVIDERS: Visit Provider Physician Assistant
DX: Z12.4 Encounter for screening for malignant neoplasm of cervix (principal)
CPT/HCPCS: 87624; 87625; 88141; 88142; 88175